=== PATIENT | male | born 1960 | race Two or more races ===

== ENCOUNTER 2021-04-09 17:09 | Emergency (ER) | payer OTHER ==
[2021-04-09 17:21] VITALS: BMI 25.7
[2021-04-09] MEDS ORDERED: LIDOCAINE HCL 2% JELLY 10 ML CARTRIDGE PR ONE (18:12)
[2021-04-09 18:39] LABS: BASO % 0.5 % (0-2.0); EOS % 3.1 % (0-4.5); HEMATOCRIT 44.7 % (35.4-49); HEMOGLOBIN 14.7 GM/dL (11.7-16.9); LYMPH % 37.9 % (8-40); MCH 29.4 pg (25.7-33.7); MCHC 32.9 g/dl (32.0-35.9); MEAN CELL VOLUME 89.3 fl (80-96); MEAN PLT VOLUME 7.5 fl (7.5-11.1); MONO % 6.9 % (3.8-10.2); NEUT % 51.6 % (42.8-82.8); PLATELET COUNT 261 10^3/uL (134-434); RDW 14.3 % (11.9-15.9); WHITE BLOOD COUNT 7.6 K/mm3 (4.0-10.0)
[2021-04-09] MEDS ORDERED: LIDOCAINE HCL 2% JELLY 10 ML CARTRIDGE ONE (18:42)
[2021-04-09 19:00] LABS: ALBUMIN 3.9 g/dl (3.4-5.0); BLOOD UREA NITROGEN 13.2 mg/dL (7-18); CALCIUM 9.5 mg/dL (8.5-10.1)
[2021-04-09 19:03] LABS: CREATININE 1.2 mg/dL (0.55-1.3)
[2021-04-09 19:05] LABS: BILIRUBIN,TOTAL 0.4 mg/dL (0.2-1); TOT PROT 7.9 g/dl (6.4-8.2)
[2021-04-09 21:20] VITALS: TEMP 98.1
[2021-04-09 22:47] VITALS: BP 163/92; PULSE 65
== END 2021-04-09 22:47 ==
LOC: JER 17:09
DX: K62.89 Other specified diseases of anus and rectum (principal)
CPT/HCPCS: 36415; 74177-TC; 80053; 82272; 85025; 99284-25; Q9967